=== PATIENT | male | born 1970 | race Caucasian/White ===

== ENCOUNTER 2021-10-17 10:28 | Emergency (ER) | payer BC, SELFPAY ==
[2021-10-17 10:37] VITALS: BP 100/68; PULSE 97; RESP 18; TEMP 37.1; O2SAT 99
--- NOTE | 2021-10-17 11:10 | ED.URI ---
HPI - URI/Sore Throat General Chief Complaint: Upper Respiratory Infection Stated Complaint: Sore Throat, Fever Time Seen by Provider: 10/17/21 11:11 Source: patient, RN notes reviewed and old records reviewed Mode of arrival: ambulatory Limitations: no limitations History of Present Illness HPI Narrative: 51-year-old male who presents to [facility] with complaints of sore throat and fevers since Wednesday 3 days.. 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 Tested last week and was negative. Patient reports that son has been ill earlier in the week.Patient reports that he has had fevers of 102F for the past 2 days and has taken some migarine Excedrin for his fevers and body aches. Patent reports no acute cough, shortness of breath or nasal congestion or discharge. MD elicited complaint: fever, sore throat and other (body aches) Onset (ago): day(s) (day 3) Able to tolerate fluids by mouth: Yes Treatments prior to arrival: other (Migraine Excedrin) Related Data Home Medications Medication Instructions Recorded Confirmed diphenhydramine HCl 25 mg capsule 25 mg DAILY 10/17/21 10/17/21 (Benadryl) levocetirizine 5 mg tablet (Xyzal) 5 mg PO DAILY 10/17/21 10/17/21 Allergies Allergy/AdvReac Type Severity Reaction Status Date / Time No Known Allergies Allergy Verified 10/17/21 10:42 Review of Systems Review of Systems: CONSTITUTIONAL:Positive for fever, chills, or sweats. EYES: Denies visual changes, redness, or discharge. ENT: Denies rhinorrhea, congestion, sore throat, or otalgia. CARDIOVASCULAR: Denies chest pain, palpitations, or edema. RESPIRATORY: Denies cough or dyspnea. GASTROINTESTINAL: Denies abdominal pain, nausea, vomiting, or diarrhea. GENITOURINARY: Denies dysuria or hematuria. SKIN: Denies rash or itching. MUSCULOSKELETAL: Denies back pain, joint pain, positive for body aches NEUROLOGIC: Denies headache, numbness, or weakness. PSYCHIATRIC: Denies anxiety or depression. All systems reviewed & are unremarkable except as noted in HPI and below PMFSH Past Medical History Medical History (Updated 10/17/21 @ 14:37 by Ainsley Ayers NP) BMI 27.0-27.9,adult VSD (ventricular septal defect) Surgical History Surgical History (Updated 10/17/21 @ 14:37 by Ainsley Ayers NP) History of tonsillectomy Family History Family History Father Hypertension Mother Family history of cardiovascular disease CHF (congestive heart failure) Kidney failure Sibling No problems noted. 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 There is no relevant family history pertinent to the presenting complaint Exam Narrative: GENERAL: Well-appearing, well-nourished, and in no acute distress. HEAD: Normocephalic, atraumatic. EYES: PERRLA and EOMI. ENT: Nares with minimal redness and scant clear rhinorrhea or epistaxis. Mucous membranes moist. NECK: Supple.no lymphadenopathy CHEST: Clear to auscultation. No respiratory distress. HEART: Regular rate and rhythm. No murmur heard. Normal peripheral pulses. ABDOMEN: Soft, nontender, nondistended, normal active bowel sounds. EXTREMITIES: Normal range of motion. No edema. SKIN: Warm, dry, no rash. NEURO: No focal deficits. Alert and oriented x3. Course Course Level of Care: Express Care Visit Vital Signs Vital signs: Vital Signs Temperature 37.1 C
== END 2021-10-17 11:35 | disposition home or self-care (01) ==
PROVIDERS: Emergency Provider Registered Nurse; PCP Family Medicine
DX: U07.1 COVID-19 (principal); Z28.310 Unvaccinated for COVID-19
CPT/HCPCS: 87426; 99213; C9803; G0463

== ENCOUNTER 2023-07-28 11:59 | Outpatient (CLI) | payer BC, SELFPAY ==
--- NOTE | ~2023-07-28 | XR_ITS ---
EXAMINATION: XR abdomen/kub 1V DATE: 07/28/2023 12:14 INDICATION: Unspecified abdominal pain. TECHNIQUE: A supine view of the abdomen on 2 radiographs was obtained. COMPARISON: None. FINDINGS: There are no dilated loops of bowel. There is a moderate volume of stool in the colon. Ther e is no visible urolithiasis. IMPRESSION: 1. Normal bowel gas pattern. Reviewed, dictated and finalized at location A.
== END 2023-07-28 12:00 | disposition home or self-care (01) ==
LOC: ANHIMG 12:01
PROVIDERS: PCP Family Medicine; Visit Provider Nurse Practitioner Family
DX: R10.9 Unspecified abdominal pain (principal)
CPT/HCPCS: 74018

== ENCOUNTER 2023-09-01 14:27 | Outpatient (CLI) | payer BC, SELFPAY ==
--- NOTE | 2023-09-01 14:31 | ECHO_ITS ---
Patient Info Name: Jhonathan Valentin Age: 53 years : 1970 Gender: Male Ht: 67 in Wt: 150 lbs BSA: 1.80 m2 HR: 59 bpm BP: 125 / 75 mmHg Heart Rhythm: Sinus Rhythm Technical Quality: Fair Exam Date: 09/01/2023 2:41 PM Exam Location: Echo Lab Patient Status: Outpatient Admit Date: 09/01/2023 Staff Ordering Physician: Leo Fernández DO Section Beamer: Sujatha Del Valle RDCS Attending Provider: Leo Fernández DO Referring Physician: Pradeep CRUMP; Exam Type: CA echo doppler color flow Study Info Indications Q21.0 - Ventricular septal defect Complete two-dimensional, color flow and Doppler transthoracic echocardiogram is performed. Summary 1. Complete two-dimensional, color flow and Doppler transthoracic echocardiogram is performed. 2. Left ventricular chamber dimension is normal. 3. Membranous ventricular septum with mild-mod left to right shunt by color doppler. 4. Left ventricular systolic function is normal, estimated at 65-70%. 5. The left ventricular diastolic function is normal. 6. E/e' 6 is not elevated. 7. Left atrial chamber dimension is severely enlarged. 8. There is trace tricuspid valve regurgitation. 9. No pulmonary hypertension, estimated pulmonary arterial systolic pressure is 37 mmHg. Left Ventricle E/e' 6 is not elevated. Membranous ventricular septum with mild-mod left to right shunt by color doppler. Left ventricular chamber dimension is normal. Left ventricular systolic function is normal, estimated at 65-70%. The left ventricular diastolic function is normal. Right Ventricle Right ventricular systolic function is normal and with normal TAPSE 2.3 cm. Right ventricular chamber dimension is normal. Left Atria Left atrial chamber dimension is severely enlarged. Right Atria Right atrial chamber dimension is normal. Aortic Valve The aortic valve is trileaflet. There is no aortic valve stenosis. There is no aortic valve regurgitation. Pulmonic Valve There is no pulmonic regurgitation. Mitral Valve There is no mitral valve stenosis. There is no mitral valve regurgitation. Tricuspid Valve There is trace tricuspid valve regurgitation. No pulmonary hypertension, estimated pulmonary arterial systolic pressure is 37 mmHg. Pericardium/Pleural There is no pericardial effusion. Inferior Vena Cava Normal inferior vena cava with >50% collapse upon inspiration consistent with normal right atrial pressure, 5 mmHg. Aorta The aortic root size at the sinus of Valsalva is normal. Left Ventricular Outflow Tract Name Value Normal LVOT 2D LVOT Diameter 2.0 cm LVOT Doppler LVOT Peak Gradient 4 mmHg LVOT Mean Gradient 2 mmHg LVOT VTI 17 cm LVOT VTI/AV VTI Ratio 0.6 LVOT Stroke Volume 55 ml LVOT CO 3.0 l/min LVOT CI 1.7 l/min/m2 Pulmonic Valve Name Value Normal RVOT Doppler
== END 2023-09-01 14:28 | disposition home or self-care (01) ==
PROVIDERS: PCP Family Medicine; Visit Provider Internal Medicine Cardiovascular Disease
DX: Q21.0 Ventricular septal defect (principal)
CPT/HCPCS: 93306